=== PATIENT | male | born 1995 | race Hispanic/Latino ===

== ENCOUNTER 2025-04-05 01:17 | Emergency (ER) | payer MEDICAID ==
[~2025-04-05] VITALS: Ht 182.9 cm; Wt 68.0 kg
--- NOTE | 2025-04-05 02:36 | ERN ---
General Chief Complaint: Altered Mental Status Stated Complaint: SENT FROM [place] FOR [facility] Time Seen by MD: 01:27 Source: patient History of Present Illness Initial Comments Patient is a 37-year-old male who was admitted to [place] for depression. He was given some trazodone and Seroquel. When the patient woke up he was not acting his normal self and he was brought here for evaluation. The sitter who is with the patient has actually known him for awhile and he states that normally the patient is alert and oriented x4. Now the patient is monitoring answers to questions feels like he is dehydrated and itching. He does not complete sentences and a times is disoriented to place. Allergies: Coded Allergies: No Known Drug Allergies (Unverified Allergy, Unknown, 04/05/25) Past Medical History Past Medical History: Bipolar, Depression Medical History Other: PSYCHOSIS Past Surgical History: None ROS Dictation Difficult to get a review of systems from the patient but he does say he is thirsty and that he is itching all over. Physical Exam Orientation: (+) alert Head/Face Trauma: No Eye: bilateral eye normal inspection, bilateral eye PERRL, bilateral eye EOMI Ear, Nose, Throat: (+) hearing grossly normal, (+) normal ENT inspection, (+) moist mucous membraine Neck: (+) normal inspection, (+) supple Respiratory: (+) chest non-tender, (+) lungs clear, (+) well ventilated Heart: (+) regular, (+) no gallop Vascular: (+) no edema Gastrointestinal: (+) soft, (+) non-tender, (+) no organomegaly Extremities: (+) normal range of motion, (+) non-tender, (+) normal inspection Results Laboratory and Microbiology Lab and Micro Result Laboratory Tests Test 04/05/25 03:05 04/05/25 04:20 White Blood Count 6.3 K/uL (4.8-10.8) Red Blood Count 4.55 MIL/uL (4.50-6.20) Hemoglobin 14.7 g/dL (14.0-18.0) Hematocrit 42.3 % (42-54) Mean Corpuscular Volume 93.0 fL (79-99) Mean Corpuscular Hemoglobin 32.3 pg (27.0-33.0) Mean Corpuscular Hemoglobin Concent 34.8 g/dL (32.0-36.0) Red Cell Distribution Width 11.9 % (11.0-15.5) Platelet Count 132 K/uL (130-400) Mean Platelet Volume 12.6 fL (7.5-10.5) H Immature Granulocyte % (Auto) 0.2 % (0-1) Neutrophils (%) (Auto) 59.7 % (40.0-77.0) Lymphocytes (%) (Auto) 23.2 % (21.0-51.0) Monocytes (%) (Auto) 11.4 % (3.0-13.0) Eosinophils (%) (Auto) 4.6 % (0.0-8.0) Basophils (%) (Auto) 0.9 % (0.0-5.0) Neutrophils # (Auto) 3.8 K/uL (1.8-7.7) Lymphocytes # (Auto) 1.5 K/uL (1.0-4.8) Monocytes # (Auto) 0.7 K/uL (0.1-1.0) Eosinophils # (Auto) 0.29 K/uL (0.00-0.70) Basophils # (Auto) 0.06 K/uL (0.00-0.20) Absolute Immature Granulocyte (auto 0.01 K/uL (0-1) Nucleated Red Blood Cells 0.0 % (0.0-0.19) Sodium Level 139 mmol/L (136-145) Potassium Level 3.9 mmol/L (3.5-5.1) Chloride Level 107 mmol/L (101-111) Carbon Dioxide Level 26 mmol/L (21-32) Blood Urea Nitrogen 16 mg/dL (7-18) Creatinine 1.1 mg/dL (0.5-1.3) Glomerular Filtration Rate Calc 94 mL/min (>90) Random Glucose 112 mg/dL (70-105) H Total Calcium 8.6 mg/dL (8.5-10.1) Urine Color COLORLESS (YELLOW) Urine Appearance CLEAR (CLEAR) Urine pH 6.5 (5.0-8.0) Urine Specific [place] 1.009 (1.001-1.031) Urine Protein NEGATIVE mg/dL (NEGATIVE) Urine Glucose (UA) NEGATIVE mg/dL (NEGATIVE) Urine Ketones NEGATIVE mg/dL (NEGATIVE) Urine Occult Blood NEGATIVE (NEGATIVE) Urine Nitrate NEGATIVE (NEGATIVE) Urine Bilirubin NEGATIVE mg/dL (NEGATIVE) Urine Urobilinogen 0.2 mg/dL (0.2-1.0) Urine Leukocyte Esterase NEGATIVE [place]/uL Urine Opiates Screen NEGATIVE (NEGATIVE) Urine Barbiturates Screen NEGATIVE (NEGATIVE) Urine Phencyclidine Screen NEGATIVE (NEGATIVE) Urine Amphetamines Screen POSITIVE (NEGATIVE) H Urine Benzodiazepines Screen NEGATIVE (NEGATIVE) Urine Cocaine Screen NEGATIVE (NEGATIVE) Urine Marijuana (THC) Screen NEGATIVE (NEGATIVE) MDM We will start with a urine tox screen. Provide fluids for his thirst. CBC and a chemistry panel rule out metabolic causes. This chemistry panel is normal patient's CBC is normal patient's urine tox screen shows amphetamines. I think the patient's current metabolic condition can be ascribed to methamphetamine withdrawal + trazodone plus-minus Seroquel ingestion. And dehydration. In either case the patient is clinically stable and can be returned back to [facility] from when she came. His vital signs are normal he is not tachycardic or tachypneic. He is normotensive. ED Course Orders Procedure Category Date Status Time Cbc With Differential LAB 04/05/25 Complete 02:36 Basic Metabolic Panel LAB 04/05/25 Complete 02:36 Lactated Ringers PHA 04/05/25 Complete 1000ml (Lactated 02:36 12 Lead Ekg Tracing- EKG 04/05/25 Logged Technical 02:36 12 Lead Ekg Tracing- EKG 04/05/25 Logged Technical 02:36 Urinalysis Profile LAB 04/05/25 Complete 04:23 Drug Screen Urine LAB 04/05/25 Complete 04:23 Current Medications Medications (Trade) Dose Ordered Sig/Renay Route PRN Reason Start Time Stop Time Status Last Admin Dose Admin Lactated Ringer's (Lactated Ringers 1000ml) 1,000 ml BOLUS STAT IV 04/05/25 02:36 04/05/25 03:18 DC 04/05/25 03:21 Vital Signs Date Time Temp Pulse Resp B/P (MAP) Pulse Ox O2 Delivery O2 Flow Rate FiO2 04/05/25 05:50 97.0 78 18 112/59 98 Room Air* 0 21 04/05/25 02:06 97.3 111 20 144/86 98 Room Air* 0 21 DX & DISP Disposition: Discharge Departure Impression: Primary Impression: Methamphetamine abuse Condition: Stable Additional Instructions: Patient has methamphetamine positive urine. I think he will continue do wake up and recover as the methamphetamine wears off. I would avoid other sedating med ications in the meantime. I also did an EKG in his QTC interval is 457. Just something to keep in mind when starting antipsychotic medications. Referrals: NONE (PCP) WALLY WATKINS MD Apr 05, 2025 02:36
[2025-04-05 03:12] LABS: BASOPHILS # (AUTO) 0.06 K/uL (0.00-0.20); BASOPHILS % (AUTO) 0.9 % (0.0-5.0); EOSINOPHILS # (AUTO) 0.29 K/uL (0.00-0.70); EOSINOPHILS % (AUTO) 4.6 % (0.0-8.0); HEMATOCRIT 42.3 % (42-54); IMMATURE GRANULOCYTE ABSOLUTE 0.01 K/uL (0-1); LYMPHOCYTES # (AUTO) 1.5 K/uL (1.0-4.8); LYMPHOCYTES % (AUTO) 23.2 % (21.0-51.0); MEAN CORPUSCULAR HEMOGLOBIN 32.3 pg (27.0-33.0); MEAN CORPUSCULAR HGB CONC 34.8 g/dL (32.0-36.0); MONOCYTES # (AUTO) 0.7 K/uL (0.1-1.0); MONOCYTES % (AUTO) 11.4 % (3.0-13.0); NEUTROPHILS # (AUTO) 3.8 K/uL (1.8-7.7); NEUTROPHILS % (AUTO) 59.7 % (40.0-77.0); PLATELET COUNT (AUTO) 132 K/uL (130-400); RED BLOOD CELL COUNT(AUTO) 4.55 MIL/uL (4.50-6.20); RED CELL DISTRIBUTION WIDTH 11.9 % (11.0-15.5); WHITE BLOOD COUNT (AUTO) 6.3 K/uL (4.8-10.8)
[2025-04-05] MEDS: LACTATED RINGERS 1000ML IV STA (03:21)
[2025-04-05 03:26] LABS: CREATININE 1.1 mg/dL (0.5-1.3); POTASSIUM 3.9 mmol/L (3.5-5.1)
[2025-04-05 04:36] LABS: APPEARANCE,URINE CLEAR (CLEAR); BILIRUBIN,URINE NEGATIVE (NEGATIVE); COLOR,URINE COLORLESS (YELLOW); GLUCOSE, URINE (UA) NEGATIVE (NEGATIVE); KETONES,URINE NEGATIVE (NEGATIVE); LEUKOCYTE ESTERASE ,URINE NEGATIVE Leu/uL (NEGATIVE); NITRATE,URINE NEGATIVE (NEGATIVE); OCCULT BLOOD,URINE NEGATIVE (NEGATIVE); PH,URINE 6.5 (5.0-8.0); PROTEIN,URINE NEGATIVE (NEGATIVE); UROBILINOGEN,URINE 0.2 mg/dL (0.2-1.0)
[2025-04-05 04:44] LABS: AMPHET/METH SCREEN,URINE POSITIVE (NEGATIVE); BARBITURATE SCREEN, URINE NEGATIVE (NEGATIVE); BENZODIAZEPINES SCREEN,URINE NEGATIVE (NEGATIVE); CANNABINOID SCREEN,URINE NEGATIVE (NEGATIVE); COCAINE SCREEN,URINE NEGATIVE (NEGATIVE); OPIATE SCREEN,URINE NEGATIVE (NEGATIVE); PHENCYCLIDINE SCREEN,URINE NEGATIVE (NEGATIVE)
[2025-04-05 04:52] LABS: ADD UA MICROSCOPIC NO
[2025-04-05 05:50] VITALS: BP 112/59; PULSE 78; RESP 18; TEMP 97; O2SAT 98
--- NOTE | 2025-04-05 06:34 | EKG ---
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
== END 2025-04-05 06:22 ==
LOC: EDH 01:17
DX: F15.10 Other stimulant abuse, uncomplicated (principal); F32.A Depression, unspecified
CPT/HCPCS: 99284; 96360; 80048; 80305; 85025; 36415; 93005; 81003; J7120